=== PATIENT | male | born 1970 | race Caucasian/White ===

== ENCOUNTER → 2020-04-07 | Outpatient (CLI) | payer BC ==
[2020-04-07 11:20] LABS: HEMOGLOBIN 16.1 gm/dl (14.0-17.5); RED BLOOD COUNT 5.14 M/UL (4.20-5.50)
[2020-04-07 11:56] LABS: BUN/CREATININE RATIO 15 (0-10)
== END ==
LOC: LAB 10:43
PROVIDERS: Internal Medicine
DX: Z12.5 Encounter for screening for malignant neoplasm of prostate (principal); E78.00 Pure hypercholesterolemia, unspecified; R74.01 Elevation of levels of liver transaminase levels; E55.9 Vitamin D deficiency, unspecified; G47.30 Sleep apnea, unspecified; R53.83 Other fatigue
CPT/HCPCS: 36415; 80053; 80061; 84153; 84436; 84439; 84443; 85025

== ENCOUNTER → 2020-06-06 | Outpatient (CLI) | payer BC | LOC: KOH-I 10:00 | DX: R74.8 Abnormal levels of other serum enzymes (principal); K76.0 Fatty (change of) liver, not elsewhere classified; K82.0 Obstruction of gallbladder | CPT/HCPCS: 76705 ==

== ENCOUNTER → 2020-12-18 | Outpatient (CLI) | payer BC ==
[2020-12-18 09:18] LABS: RED BLOOD COUNT 5.23 M/UL (4.20-5.50); WHITE BLOOD COUNT 4.3 K/UL (4.5-11.0)
[2020-12-18 09:36] LABS: BUN/CREATININE RATIO 13 (0-10)
[2020-12-20 02:10] LABS: ALT (SGPT) P5P 41 IU/L (0-55); APOLIPOPROTEIN A-1 164 mg/dL (101-178); AST (SGOT) P5P 31 IU/L (0-40); BILIRUBIN, TOTAL 0.6 mg/dL (0.0-1.2); CHOLESTEROL, TOTAL 194 mg/dL (100-199); GGT 100 IU/L (0-65); GLUCOSE, SERUM 103 mg/dL (65-99); HAPTOGLOBIN 132 mg/dL (23-355); HEIGHT: 72 in (.); TRIGLYCERIDES 96 mg/dL (0-149); WEIGHT: 260 LBS (.)
== END ==
LOC: LAB 08:41
PROVIDERS: Physician Assistant
DX: E78.00 Pure hypercholesterolemia, unspecified (principal); E55.9 Vitamin D deficiency, unspecified; K76.0 Fatty (change of) liver, not elsewhere classified
CPT/HCPCS: 36415; 80053; 80061; 82172; 82247; 82465; 82947; 82977; 83010; 83883; 84450; 84460; 84478; 85025

== ENCOUNTER → 2021-12-18 | Outpatient (CLI) | payer BC ==
[2021-12-18 09:00] LABS: HEMOGLOBIN 15.6 gm/dl (14.0-17.5); RED BLOOD COUNT 5.13 M/UL (4.20-5.50); WHITE BLOOD COUNT 4.5 K/UL (4.5-11.0)
[2021-12-18 09:47] LABS: BUN/CREATININE RATIO 17 (0-10)
[2021-12-20 00:07] LABS: ALT (SGPT) P5P 44 IU/L (0-55); APOLIPOPROTEIN A-1 135 mg/dL (101-178); AST (SGOT) P5P 33 IU/L (0-40); BILIRUBIN, TOTAL 0.5 mg/dL (0.0-1.2); CHOLESTEROL, TOTAL 189 mg/dL (100-199); FIBROSIS SCORE 0.13 (0.00-0.21); GGT 102 IU/L (0-65); GLUCOSE, SERUM 99 mg/dL (65-99); HAPTOGLOBIN 139 mg/dL (29-370); HEIGHT: 72 in (.); TRIGLYCERIDES 98 mg/dL (0-149); WEIGHT: 265 LBS (.)
== END ==
LOC: LAB 08:35
PROVIDERS: Physician Assistant
DX: E78.00 Pure hypercholesterolemia, unspecified (principal); E55.9 Vitamin D deficiency, unspecified; K76.0 Fatty (change of) liver, not elsewhere classified
CPT/HCPCS: 36415; 80053; 80061; 82172; 82247; 82465; 82947; 82977; 83010; 83883; 84450; 84460; 84478; 85025